=== PATIENT | female | born 1995 | race Caucasian/White ===

== ENCOUNTER 2019-07-02 09:44 | Emergency (ER) | payer SELFPAY ==
[~2019-07-02] VITALS: Ht 175.3 cm; Wt 81.6 kg
--- NOTE | 2019-07-02 10:01 | NUR ---
PT BIB SELF C/O L ARMPIT ABSCESS FOR 2 DAYS, PT IS AAOX4, NOT IN RESPIRATORY DISTRESS ,HOOKED TO MONITOR, KEPT RESTED AND COMFORTABLE, WILL CONTINUE TO MONITOR.
--- NOTE | 2019-07-02 10:08 | NUR ---
PT SEEN AND EXAMINED BY .
[2019-07-02 10:37] LABS: BASOPHILS # (AUTO) 0.1 /CMM (0.0-0.2); BASOPHILS % (AUTO) 0.6 % (0.0-2.0); EOSINOPHILS % (AUTO) 0.6 % (0.0-6.0); HEMATOCRIT 41 % (33-45); HEMOGLOBIN 13.6 g/dL (11.5-14.8); LYMPHOCYTES # (AUTO) 1.8 /CMM (0.8-4.8); LYMPHOCYTES % (AUTO) 15.3 % (20.0-44.0); MEAN CORPUSCULAR HGB CONC 33 g/dl (31.0-36.0); MEAN CORPUSCULAR VOLUME 88 fL (82-100); MONOCYTES % (AUTO) 8.5 % (2.0-12.0); NEUTROPHILS # (AUTO) 8.6 /CMM (1.8-8.9); PLATELET COUNT (AUTO) 245 /CMM (150-450); RED BLOOD CELL COUNT(AUTO) 4.67 MIL/uL (4.0-5.2); WHITE BLOOD COUNT (AUTO) 11.5 K/uL (4.3-11.0)
[2019-07-02 10:54] LABS: CREATININE 0.8 mg/dL (0.6-1.3); POTASSIUM 3.3 mmol/L (3.5-5.1)
[2019-07-02] MEDS ORDERED: MORPHINE SULFATE INJ 10 MG/ML DISP.SYRIN IV ONE (12:30)
[2019-07-02] MEDS ORDERED: CEFTRIAXONE 1 G in IV D5W 50 ML IV ONE (12:30)
[2019-07-02] MEDS ORDERED: VANCOMYCIN HCL 1 GM in IV D5W 260 ML IV ONE (12:30)
[2019-07-02] MEDS ORDERED: MORPHINE SULFATE INJ 4 MG/ML DISP.SYRIN ONE (12:38)
[2019-07-02] MEDS ORDERED: CEFTRIAXONE 1GM BAG (ER ONLY) 50 ML IV ONE (12:44)
--- NOTE | 2019-07-02 15:04 | NUR ---
Patient discharged to home in stable condition. Written and verbal after care instructions given. Patient verbalizes understanding of instruction. IV removed. Catheter intact and site benign. Pressure and 4x4 applied to site. No bleeding noted.
[2019-07-02 15:05] VITALS: BP 130/65
== END 2019-07-02 15:05 | disposition home or self-care (01) ==
LOC: ER 09:51
DX: L02.412 Cutaneous abscess of left axilla (principal); L03.112 Cellulitis of left axilla; Z88.0 Allergy status to penicillin
CPT/HCPCS: 36415; 80048; 85025; 87040 ×2; 96365; 96366; 96368; 96375; 99284; J0696 ×2; J2270; J7060 ×2